=== PATIENT | female | born 1970 | race Caucasian/White ===

== ENCOUNTER 2022-03-30 07:24 | Day surgery (SDC) | payer MEDICAID ==
[2022-03-29 09:38] LABS: COVID AG,FIA SOURCE NASAL SWAB
[~2022-03-30] VITALS: Ht 162.6 cm; Wt 80.0 kg
[~2022-03-30 07:24] MED LIST: SODIUM CHLORIDE 0.9% 1,000 ML ONE
[2022-03-30] MEDS ORDERED: PROPOFOL 1% 20 ML VIAL IVP ONE (07:25)
[2022-03-30] MEDS ORDERED: SODIUM CHLORIDE 0.9% 1,000 ML IV ONE (07:30)
[2022-03-30] MEDS ORDERED: METF-446 PO (08:07)
[2022-03-30] MEDS ORDERED: ERGO500054 PO (08:07)
[2022-03-30] MEDS ORDERED: GLIP5TAB11 PO (08:07)
[2022-03-30 08:16] LABS: GLUCOMETER DEV NAME(LOC) SDS.; GLUCOSE,POINT OF CARE 142 MG/DL (70-110)
== END 2022-03-30 11:05 | disposition home or self-care (01) ==
LOC: SURGERY 07:24
PROVIDERS: ATTEND Internal Medicine Gastroenterology
DX: Z12.11 Encounter for screening for malignant neoplasm of colon (principal); K57.30 Diverticulosis of large intestine without perforation or abscess without bleeding; K64.0 First degree hemorrhoids; K29.50 Unspecified chronic gastritis without bleeding; B96.81 Helicobacter pylori [H. pylori] as the cause of diseases classified elsewhere; E11.9 Type 2 diabetes mellitus without complications; E66.01 Morbid (severe) obesity due to excess calories; Z68.30 Body mass index [BMI] 30.0-30.9, adult; Z98.890 Other specified postprocedural states; Z79.899 Other long term (current) drug therapy
CPT/HCPCS: 45378; 43239; 82962; 87426; C9803; J2704; J7030